=== PATIENT | female | born 1960 | race Hispanic/Latino ===

== ENCOUNTER 2020-08-16 07:58 | Emergency (ER) | payer OTHER ==
[2020-08-16] MEDS ORDERED: MAGNESIUM SULFATE 2 GM/50 ML BAG IV ONE (08:06)
[2020-08-16] MEDS ORDERED: IPRATROPIUM 0.02% NEBU 2.5 ML IH ONE ×2 (08:06→08:09)
[2020-08-16] MEDS ORDERED: ALBUTEROL 2.5 MG/3 ML NEBU IH ONE ×2 (08:06→08:09)
--- NOTE | 2020-08-16 08:10 | Emergency Department Report ---
ED Shortness of Breath HPI - General Stated Complaint: ES Time Seen by Provider: 08/16/20 08:05 Source: patient, EMS Mode of arrival: Stretcher - History of Present Illness Initial Comments: 60-year-old female, history of COPD, presents to ED with difficulty breathing. Patient states she has been having some increasing shortness of breath over the last week, states it became worse this morning. Patient used her inhaler without improvement, so EMS was called. EMS reports patient's initial O2 sats on room air was in the 70s. Patient was given albuterol 5 mg nebulizer treatment by EMS and transported to ED. Patient denies fever or known contact with anyone who has tested positive for COVID-19. She reports cough and chest pain. She denies any leg pain or swelling. Patient reports an allergy to cortisone. She states that she is not allergic to prednisone. Patient reports tobacco use. She is not on home O2. MD Complaint: shortness of breath -: week(s) (1) Severity: severe Consistency: constant Improves With: nothing Worsens With: exertion Known History Of: COPD Associated Symptoms: chest pain Treatments Prior to Arrival: oxygen, bronchodilator - Related Data Home Oxygen Therapy: No Previous Rx's Medication Instructions Recorded Last Taken Type Albuterol Sulfate [Proventil Hfa] 2 puff IH Q4HR PRN #1 hfa.[email or web address] 08/16/20 Unknown Rx predniSONE [Deltasone] 50 mg PO QDAY #5 tab 08/16/20 Unknown Rx Allergies Allergy/AdvReac Type Severity Reaction Status Date / Time codeine Allergy Unknown Verified 08/16/20 08:25 cortisone Allergy Unknown Verified 08/16/20 08:25 ED Review of Systems ROS: Stated complaint: ES Other details as noted in HPI Comment: All other systems reviewed and negative Constitutional: denies: chills, fever Respiratory: cough, shortness of breath Cardiovascular: chest pain Musculoskeletal: other (Denies leg pain or swelling) ED Past Medical Hx - Medications Home Medications: Home Medications Medication Instructions Recorded Confirmed Last Taken Type Albuterol Sulfate [Proventil Hfa] 2 puff IH Q4HR PRN #1 hfa.aer.ad 08/16/20 Unknown Rx predniSONE [Deltasone] 50 mg PO QDAY #5 tab 08/16/20 Unknown Rx ED Physical Exam - General General appearance: alert - Head Head exam: Present: atraumatic, normocephalic - Eye Eye exam: Present: normal appearance - ENT ENT exam: Present: mucous membranes moist - Neck Neck exam: Present: normal inspection - Respiratory Respiratory exam: Present: respiratory distress, decreased breath sounds, other (Tachypnea present) - Cardiovascular Cardiovascular Exam: Present: normal rhythm, tachycardia - GI/Abdominal GI/Abdominal exam: Present: soft. Absent: distended, tenderness - Extremities Exam Extremities exam: Present: normal inspection. Absent: pedal edema, calf tenderness - Neurological Exam Neurological exam: Present: alert, oriented X3 - Psychiatric Psychiatric exam: Present: normal affect, normal mood - Skin Skin exam: Present: warm, dry, intact, normal color ED Course Vital Signs 08/16/20 08/16/20 08/16/20 08:00 08:16 08:27 Temperature Pulse Rate 138 H 134 H Pulse Rate [ Bilateral] Respiratory 34 H 30 H Rate Respiratory Rate [Bilateral ] Blood Pressure 175/145 Blood Pressure 175/145 [Right] O2 Sat by Pulse 81 L 94 95 Oximetry 08/16/20 08/16/20 08/16/20 08:35 08:46 09:06 Temperature Pulse Rate 116 H 118 H Pulse Rate [ 120 H Bilateral] Respiratory 33 H 26 H Rate Respiratory 24 Rate [Bilateral ] Blood Pressure 167/84 Blood Pressure 148/78 [Right] O2 Sat by Pulse 96 99 Oximetry 08/16/20 08/16/20 08/16/20 09:20 09:46 10:56 Temperature 98.1 F Pulse Rate 119 H 101 H Pulse Rate [ Bilateral] Respiratory 26 H 20 Rate Respiratory Rate [Bilateral ] Blood Pressure 150/78 Blood Pressure 155/76 [Right] O2 Sat by Pulse 95 97 Oximetry ED Medical Decision Making - Lab Data Result diagrams: 08/16/20 08:17 08/16/20 08:17 - EKG Data -: EKG Interpreted by Me EKG shows normal: sinus rhythm, axis, QRS complexes, ST-T waves Rate: tachycardia (rate 119) - EKG Data Interpretation: other (prolonged QT) - Radiology Data Radiology results: report reviewed, image reviewed - Medical Decision Making 60-year-old female presents to ED with acute COPD exacerbation. Initial O2 sats here in the ED were 81%. Patient observed in the ED and reassessed multiple times. She is currently feeling much better following prednisone, albut juma/Atrovent nebulizer treatment, mag sulfate. Chest x-ray was negative for any acute findings. Her current O2 sats are 96% on room air. She is comfortable and requesting discharge at this time. - Differential Diagnosis COPD, pneumonia, ACS Critical Care Time: Yes Critical care time in (mins) excluding proc time.: 35 Critical care attestation.: If time is entered above; I have spent that time in minutes in the direct care of this critically ill patient, excluding procedure time. Critical Care Time: 35 min ED Disposition Clinical Impression: COPD with acute exacerbation Disposition: DC- TO HOME OR SELFCARE Is pt being admited?: No Condition: Stable Instructions: Chronic Obstructive Pulmonary Disease (ED) Prescriptions: predniSONE [Deltasone] 50 mg PO QDAY #5 tab Albuterol Sulfate [Proventil Hfa] 2 puff IH Q4HR PRN #1 hfa.aer.ad PRN Reason: Wheezing Referrals: [facility] MD DILCIA [Primary Care Provider] - 3-5 Days PRIMARY CAREMD [Referring] - 3-5 Days Time of Disposition: 10:42
[2020-08-16 08:35] LABS: Basophils # (Auto) 0.1 K/mm3 (0.0-0.1); Eosinophils # (Auto) 0.2 K/mm3 (0.0-0.4); Eosinophils % (Auto) 1.2 % (0.0-4.3); Hemoglobin 14.7 gm/dl (10.1-14.3); Lymphocytes # (Auto) 2.9 K/mm3 (1.2-5.4); Mean Corpuscular HGB Conc 33 % (30-34); Mean Corpuscular Volume 93 fl (79-97); Monocytes % (Auto) 7.9 % (0.0-7.3); Platelet Count 214 K/mm3 (140-440); Red Blood Count 4.76 M/mm3 (3.65-5.03); Red Cell Distribution Width 13.9 % (13.2-15.2)
[2020-08-16 08:42] LABS: INR 0.94 (0.87-1.13)
[2020-08-16 08:49] LABS: BUN/Creatinine Ratio 25; Blood Urea Nitrogen 15 mg/dL (7-17); Calcium 8.7 mg/dL (8.4-10.2); Hemolysis Index 12
[2020-08-16 08:50] LABS: Partial Thromboplastin Time 21.7 Sec. (24.2-36.6)
--- NOTE | 2020-08-16 08:54 | XRay Report ---
CHEST 1 VIEW 08/16/2020 7:45 AM INDICATION / CLINICAL INFORMATION: sob. COMPARISON: None available. FINDINGS: SUPPORT DEVICES: None. HEART / MEDIASTINUM: No significant abnormality. LUNGS / PLEURA: There is mild pulmonary hyperinflation with interstitial prominence bilaterally. No p neumothorax. ADDITIONAL FINDINGS: No significant additional findings. IMPRESSION: Mild pulmonary hyperinflation with interstitial prominence bilaterally. Findings could reflect COPD w ith chronic interstitial changes in the right clinical setting. Signer Name: Shakeel Aceves MD Signed: 08/16/2020 8:49 AM Workstation Name: [id number]
[2020-08-16] MEDS ORDERED: predniSONE 20 MG TAB PO ONE (10:40)
[2020-08-16 10:57] VITALS: BP 155/76
== END 2020-08-16 11:20 | disposition home or self-care (01) ==
LOC: ED 07:58
DX: J45.901 Unspecified asthma with (acute) exacerbation (principal); Z79.899 Other long term (current) drug therapy; Z88.6 Allergy status to analgesic agent; Z88.8 Allergy status to other drugs, medicaments and biological substances
CPT/HCPCS: 36415; 71045; 80048; 84484; 85025; 85610; 85730; 93005; 94640; 96365; 99284; J3475; J7512; 94644